=== PATIENT | male | born 1980 | race Caucasian/White ===

== ENCOUNTER 2017-04-01 11:03 | Emergency (ER) | payer MEDICARE, MEDICAID ==
[2017-04-01 12:40] VITALS: BP 114/77
--- NOTE | 2017-04-01 15:21 | UC ---
[place]on [place] Jason, scribed for [facility] on 04/01/17 at 1519 . Ear Complaint HPI - HPI Summary HPI Summary: In Room: This patient is a 37 year old M presenting to [facility] with a chief complaint of nonproductive cough and left ear pain that started 1 week ago. The patient rates the pain 0/10 in severity. Symptoms aggravated by nothing. Symptoms alleviated by nothing. MD note: visit history noncontributory to present complaint. He is on multiple medications including opioid prophylaxis. Hx of depression. Nurses note: c/o of coughing for the past week. Also c/o of sinus congestion and L ear pain for the past 2-3 days. Denies fever or sore throat. - History of Current Complaint Chief Complaint: UCRespiratory Stated Complaint: COUGH Time Seen by Provider: 04/01/17 12:59 Hx Obtained From: Patient Onset/Duration: Gradual Onset, Lasting Weeks - since 1 week ago, Still Present Pain Intensity: 0 Pain Scale Used: 0-10 Numeric Aggravating Factors: Nothing Alleviating Factors: Nothing - Allergies/Home Medications Allergies/Adverse Reactions: Allergies Allergy/AdvReac Type Severity Reaction Status Date / Time No Known Allergies Allergy Verified 04/01/17 12:40 Home Medications: Home Medications Escitalopram Oxalate [Lexapro 10 mg] 10 mg PO DAILY 04/01/17 [History Confirmed 04/01/17] PMH/Surg Hx/FS Hx/Imm Hx Previously Healthy: Yes Endocrine History: Other Other Endocrine History: negative DM Psychological History: Depression - Surgical History Surgical History: Yes Surgery Procedure, Year, and Place: nasal surgery - Family History Known Family History: Positive: Hypertension Negative: Blood Disorder - Social History Occupation: Disabled Alcohol Use: Rare Substance Use Type: Marijuana Substance Use Comment - Amount & Last Used: uses medical marijuana for chronic pain Smoking Status (MU): Current Every Day Smoker Amount Used/How Often: currently vapes Have You Smoked in the Last Year: Yes Review of Systems All Other Systems Reviewed And Are Negative: Yes - Comments Additional Review of Systems Comments: A 12 point review of systems was completed and significantly positive for: nonproductive cough and left ear pain. The remainder of the review was negative except as stated above in the HPI. Physical Exam Triage Information Reviewed: Yes Vital Signs: Initial Vital Signs Temp 99.2 F 04/01/17 12:24 Pulse 145 12/14/17 12:24 Resp 16 04/01/17 12:24 BP 114/77 04/01/17 12:24 Pulse Ox 97 04/01/17 12:24 - Additional Comments General: The patient is well-nourished in no acute distress and in no acute pain. Skin: The skin is warm and dry and skin color reflects adequate perfusion. HEENT: The head is normocephalic and atraumatic. The pupils are equal and reactive. The conjunctivae are clear and without drainage.~Nares are patent and without drainage. Mouth reveals moist mucous membranes and the throat is without erythema and exudate. The external ears are intact. The tympanic membranes are intact. Neck is supple with full range of motion and non-tender. There are no carotid bruits. There is no neck vein distension. Fluid behind left ear drum and is mildly erythematous Respiratory: Chest is non-tender. Lungs are clear to auscultation and breath sounds are symmetrical and equal. Cardiovascular: Heart is regular rate and rhythm.~There is no murmur or rub auscultated. There is no peripheral edema and pulses are symmetrical and equal. Abdomen: The abdomen is soft and non-tender. There are normal bowel sounds heard in all four quadrants and there is no organomegaly palpated. Musculoskeletal: There is no back pain noted.~Extremities are non-tender with full range of motion. There is good capillary refill.~There is no peripheral edema or calf tenderness elicited. Neurological: Patient is alert and oriented to person, place and time.~The patient has symmetrical motor strength in all four extremities.~Cranial nerves are grossly intact. Deep tendon reflexes are symmetrical and equal in all four extremities. Psychiatric: The patient has an appropriate affect and does not exhibit any anxiety or depression Ear Complaint Course/Dx - Course Course Of Treatment: The patient is a 37 year old with a 1 week history of cough and left ear pain. The physical exam shows lungs to be clear and left TM mildly red with fluid behind it. I discussed the diagnosis of left serous otitis with the patient and the patient using amoxicillin for 10 days. The patient was agreeable with this plan. - Differential Dx/Diagnosis Differential Diagnosis/HQI/PQRI: Other - URI, serous otitis, otitis media Provider Diagnoses: left serous otitis Discharge - Discharge Plan Condition: Stable Disposition: HOME Prescriptions: Amoxicillin PO (*) [Amoxicillin 875 MG (*)] 875 mg PO BID #20 tab MDD 2 Patient Education Materials: Serous Otitis Media (ED) Referrals: Cristino Simeon MD [Primary Care Provider] - Additional Instructions: Thank you for helping us improve patient care by filling out the My Point Survey. WE DISCUSSED: 1. You have an infected left eardrum. 2. Start amoxicillin for 10 days. 3. See instructions below. 4. Re check at any time for increased pain or temperature. PLEASE SEEK CARE AT THE EMERGENCY DEPARTMENT IF SYMPTOMS WORSEN OR IF NEW SYMPTOMS DEVELOP. FOLLOW UP WITH YOUR PRIMARY CARE PHYSICIAN. The documentation as recorded by the Antwon pyle Jason accurately reflects the service I personally performed and the decisions made by , Brannon Ardon MD.
== END 2017-04-01 13:30 | disposition home or self-care (01) ==
LOC: UCEAST 11:03
DX: H65.92 Unspecified nonsuppurative otitis media, left ear (principal)
CPT/HCPCS: 99212; G0463

== ENCOUNTER 2017-07-02 19:03 | Emergency (ER) | payer OTHER, MEDICAID ==
[2017-07-02 19:25] VITALS: BP 137/88
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
--- NOTE | 2017-07-02 20:55 | RAD ---
Indication: Mid thoracic spine pain RIGHT side. Comparison: June 01, 2008 PA and lateral chest views. Technique: Standing AP and lateral views centered at the thoracic lumbar junction. Report: Radiographs centered at the thoracic lumbar junction demonstrate normal alignment of the visualized thoracic and lumbar spine. No fracture evident. Multilevel very mild vertebral and plate osteophytosis and disc space narrowing at the mid to distal thoracic spine without significant change. Unremarkable paraspinal soft tissue contours. IMPRESSION: No traumatic injury of the visualized thoracic or lumbar spine evident.
== END 2017-07-02 21:50 | disposition home or self-care (01) ==
LOC: UCEAST 19:03
DX: S13.4XXA Sprain of ligaments of cervical spine, initial encounter (principal); S33.5XXA Sprain of ligaments of lumbar spine, initial encounter; V43.63XA Car passenger injured in collision with pick-up truck in traffic accident, initial encounter; Y93.89 Activity, other specified; Y92.410 Unspecified street and highway as the place of occurrence of the external cause; F41.9 Anxiety disorder, unspecified; F32.9 Major depressive disorder, single episode, unspecified; Z87.891 Personal history of nicotine dependence
CPT/HCPCS: 72020; 72050; 72080; 99213; G0463

== ENCOUNTER 2018-12-27 12:56 | Emergency (ER) | payer MEDICARE, MEDICAID ==
--- NOTE | 2018-12-27 13:19 | UC ---
Respiratory Complaint HPI - HPI Summary HPI Summary: 38 yo male presents with 2 complaints: 1) For the last week he has had a dry cough, sinus pain/pressure/congestion, b/ l ears popping and intermittent pressure. He has been taking mucinex OTC with mild relief at first, but no longer helping. He smokes daily. Today noticed a little bit a of sore throat. Denies fever, SOB, chest pain, abdominal pain, n/v. 2) About a month ago he was around another individual who was diagnosed with scabies. Pt began to itch and he divided a scabies cream treatment between him and his girlfriend. His girlfriend's itching resolved, but pt's never fully went away and has persisted. Itching is worse at night and is in hands and feet/ toes. - History of Current Complaint Stated Complaint: COUGH NAUSEA Time Seen by Provider: 12/27/18 13:18 Hx Obtained From: Patient Onset/Duration: Gradual Onset Timing: Constant Severity Initially: Mild Severity Currently: Moderate Pain Intensity: 6 Pain Scale Used: 0-10 Numeric - Allergies/Home Medications Allergies/Adverse Reactions: Allergies Allergy/AdvReac Type Severity Reaction Status Date / Time No Known Allergies Allergy Verified 07/02/17 19:25 PMH/Surg Hx/FS Hx/Imm Hx Psychological History: Anxiety, Depression - Surgical History Surgical History: Yes Surgery Procedure, Year, and Place: nasal surgery - Family History Known Family History: Positive: Hypertension Negative: Blood Disorder - Social History Lives: With Family Alcohol Use: None Substance Use Type: Marijuana Substance Use Comment - Amount & Last Used: uses medical marijuana for chronic pain Smoking Status (MU): Former Smoker Amount Used/How Often: currently vapes Have You Smoked in the Last Year: Yes Review of Systems All Other Systems Reviewed And Are Negative: No Constitutional: Positive: Negative Skin: Positive: Rash Eyes: Positive: Negative ENT: Positive: Ear Ache, Nasal Discharge, Sinus Congestion, Sinus Pain/ Tenderness Respiratory: Positive: Cough Cardiovascular: Positive: Negative Gastrointestinal: Positive: Negative Neurological: Positive: Negative Psychological: Positive: Negative Physical Exam - Summary Physical Exam Summary: GENERAL: NAD. WDWN. No pain distress. SKIN: Web spacing of fingers and toes with scattered excoriations. No linear burrows appreciated. No open wounds, streaking, or tenderness. HEENT: Head: AT/NC Eyes: EOM intact. Conjunctiva clear without inflammation or discharge. Ears: Hearing grossly normal. TMs intact, no bulging, erythema, or edema. Nose: Nasal mucosa mildly swollen and erythematous without discharge. TTP maxillary and frontal sinus. Positive post nasal drip Throat: Posterior oropharynx without exudates, erythema, or tonsillar enlargement. Uvula midline. NECK: Supple. Nontender. No lymphadenopathy. CHEST: CTAB. No r/r/w. No accessory muscle use. Breathing comfortably and in no distress. CV: RRR. Without m/r/g. Pulses intact. Cap refill <2seconds NEURO: Alert. PSYCH: Age appropriate behavior. Triage Information Reviewed: Yes Vital Signs: Vital Signs: Temp Pulse Resp BP Pulse Ox 97.9 F 113 20 134/94 95 12/27/18 13:19 12/27/18 13:19 12/27/18 13:19 12/27/18 13:12/27/18 13:19 Vital Signs Reviewed: Yes Respiratory Course/Dx - Course Course Of Treatment: Sinusitis. Scabies - Differential Dx/Diagnosis Provider Diagnosis: Sinusitis, Scabies Discharge ED - Sign-Out/Discharge Documenting (check all that apply): Patient Departure All imaging exams completed and their final reports reviewed: No Studies - Discharge Plan Condition: Stable Disposition: HOME Prescriptions: Azithromycin TAB* [Zithromax TAB (Z-DAISY) 250 mg #6 tabs] 2 tab PO .TODAY, THEN 1 DAILY #1 daisy Permethrin 5% CREAM* 1 applic TOPICAL SEE INSTRUCTIONS #30 gm Patient Education Materials: Sinusitis (ED), Scabies (ED) Referrals: Cristino Simeon MD [Primary Care Provider] - Additional Instructions: If you develop a fever, shortness of breath, chest pain, new or worsening symptoms - please call your PCP or go to the ED immediately. Your blood pressure was high at todays visit. Please see your primary provider within 4 weeks for recheck and re-evaluation. - Billing Disposition and Condition Condition: STABLE Disposition: Home
[2018-12-27 13:26] VITALS: BP 134/94
== END 2018-12-27 13:39 | disposition home or self-care (01) ==
LOC: UCEAST 12:56
DX: J32.9 Chronic sinusitis, unspecified (principal); B86 Scabies; F41.9 Anxiety disorder, unspecified; F32.9 Major depressive disorder, single episode, unspecified; Z87.891 Personal history of nicotine dependence
CPT/HCPCS: 99212; G0463

== ENCOUNTER 2019-06-14 09:56 | Emergency (ER) | payer MEDICARE, MEDICAID ==
--- OUTSIDE RECORDS SUMMARY | 2019-06-14 11:39 | XMS REPORT | Continuity of Care Document ---
:1980 External Reference #:[id number] Author Name Benjamin Yang, OD Address [address] [place] [address] Care Team Providers Name Role Phone Cristino Simeon JR, MD - Internal Care Team Information Distribution Accounting Clerk [phone] Medicine Problems Description No Information Available Social History Type Date Description Comments Sex Unknown ETOH Use Never used alcohol Tobacco Use Start: Unknown Light tobacco smoker (10 or fewer cigarettes/day) Smoking Status Reviewed: 05/29/19 Light tobacco smoker (10 or fewer cigarettes/day) Allergies, Adverse Reactions, Alerts Active Allergies Reaction Severity Comments Date Seasonal 06/08/2016 Medications Active Medications SIG Qnty Indications Ordering Provider Date Escitalopram Oxalate Unknown 10mg Tablets Hydroxyzine HCL Take 1 Tablet By Unknown 50mg Tablets Mouth In The Evening as Needed Ibuprofen Take 1 Tablet By Unknown 600mg Tablets Mouth 3 Times A Day as Needed Cyclobenzaprine HCL Take 1 Tablet By Unknown 10mg Mouth Up To 3 Tablets Times A Day Valacyclovir HCL She HACKETT, 500mg Angelito Tablets Medical Marijuana Unknown Immunizations Description No Information Available Vital Signs Date Vital Result Comment 05/29/2019 8:58am Intraocular Pressure Right Eye 15 mmHg Intraocular Pressure Left Eye 15 mmHg 10/26/2017 3:21pm Intraocular Pressure Right Eye 16 mmHg Intraocular Pressure Left Eye 16 mmHg Results Description No Information Available Procedures Date Code Description Status 05/29/2019 42656 Refraction Completed 05/29/2019 43998 Eye Exam Est Intermediate Completed Medical Devices Description No Information Available Encounters Description No Information Available Assessments Date Code Description Provider 05/29/2019 H52.13 Myopia, bilateral Benjamin Yang, OD 05/29/2019 H10.45 Other chronic allergic conjunctivitis Benjamin Yang, OD Plan of Treatment 05/29/2019 - Benjamin Yang, ODH52.13 Myopia, [id number] Other chronic allergic conjunctivitisFollow up:yearly full, sooner PRN Functional Status Description No Information Available Mental Status Description No Information Available Referrals Description No Information Available
[2019-06-14 11:56] VITALS: BP 133/94
--- NOTE | 2019-06-14 12:13 | UC ---
Ear Complaint HPI - HPI Summary HPI Summary: 39-year-old male presenting with bilateral earache intermittently 2-3 weeks. Patient states it initially started as a cold with nasal congestion that has mostly resolved. States ears feel full with pressure. Denies decreased hearing. Denies drainage from the ears. Denies tinnitus. Denies fever and chills. Taking [id number] decongestants with some relief. - History of Current Complaint Chief Complaint: UCEar Stated Complaint: EAR PAIN Hx Obtained From: Patient Pain Intensity: 5 Pain Scale Used: 0-10 Numeric - Allergies/Home Medications Allergies/Adverse Reactions: Allergies Allergy/AdvReac Type Severity Reaction Status Date / Time No Known Allergies Allergy Verified 06/14/19 11:51 Home Medications: Home Medications ValACYclovir (*) [Valtrex 500 mg (NF)] 1 tab PO DAILY 12/22/13 [History Confirmed 06/14/19] Escitalopram Oxalate [Lexapro 10 mg] 10 mg PO DAILY 04/01/17 [History Confirmed 06/14/19] Cyclobenzaprine HCl 1 tab PO QPM PRN 06/14/19 [History Confirmed 06/14/19] Ibuprofen 1,200 mg PO ONCE PRN 06/14/19 [History Confirmed 06/14/19] Phenylephrine/Dm/Acetaminop/GG [Mucinex Fast-Max Cold-Flu Cap] 1 tab PO ONCE PRN 06/14/19 [History Confirmed 06/14/19] PMH/Surg Hx/FS Hx/Imm Hx Previously Healthy: Yes - Surgical History Surgical History: Yes Surgery Procedure, Year, and Place: nasal surgery - Family History Known Family History: Positive: Hypertension Negative: Blood Disorder - Social History Alcohol Use: Occasionally Substance Use Type: Heroin, Marijuana Substance Use Comment - Amount & Last Used: uses medical marijuana for chronic pain Smoking Status (MU): Former Smoker Amount Used/How Often: 1/2ppd Have You Smoked in the Last Year: Yes Household Exposure Type: Cigarettes Review of Systems All Other Systems Reviewed And Are Negative: Yes Constitutional: Positive: Negative ENT: Positive: Ear Ache - b/l Respiratory: Positive: Negative Cardiovascular: Positive: Negative Gastrointestinal: Positive: Negative Musculoskeletal: Positive: Negative Neurological/Mental Status: Positive: Negative Physical Exam - Summary Physical Exam Summary: Vital Signs Reviewed: Yes A+Ox3, no distress Eyes: Conjunctiva Clear ENT: Hearing grossly normal, right TM intact and clear. left TM with small effusion, no bulding or erythema. no nasal congestion, moist, uvula midline, no exudate, no erythema Neck: Positive: Supple Respiratory: Positive: No respiratory distress, No accessory muscle use + CTA throughout no w/r Cardiovascular: tachycardic. nl s1, s2 no m/r Musculoskeletal Exam: BENITES x 4 without difficulty Neurological: Positive: Alert Psychological: Positive: age appropriate behavior Skin: Positive: no rash, no ecchymosis Vital Signs: Initial Vital Signs Temp 99.6 F 06/14/19 11:48 Pulse 123 06/14/19 11:48 Resp 14 06/14/19 11:48 BP 133/94 06/14/19 11:48 Pulse Ox 97 06/14/19 11:48 Ear Complaint Course/Dx - Course Course Of Treatment: Discussed serous otitis media of left ear with patient without signs of infection.. Educated on symptomatic treatment and reassured the patient that symptoms should improve with time on their own. Instructed to follow up with PCP if symptoms persist or worsen. Patient voiced understanding and agreed with treatment plan. - Differential Dx/Diagnosis Differential Diagnosis/HQI/PQRI: Otitis Media, URI Provider Diagnosis: Acute serous otitis media of left ear Discharge ED - Sign-Out/Discharge Documenting (check all that apply): Patient Departure All imaging exams completed and their final reports reviewed: No Studies - Discharge Plan Condition: Stable Disposition: HOME Patient Education Materials: Serous Otitis Media (ED) Referrals: Cristino Simeon MD [Primary Care Provider] - If Needed Additional Instructions: You do not show any signs of an ear infection today. You may continue with over the counter decongestant and nasal spray. Symptoms should resolve on their own with time. Follow up with your primary care provider with any new or worsening symptoms. - Billing Disposition and Condition Condition: STABLE Disposition: Home
== END 2019-06-14 12:34 | disposition home or self-care (01) ==
LOC: UCEAST 09:56
DX: H65.02 Acute serous otitis media, left ear (principal); Z87.891 Personal history of nicotine dependence
CPT/HCPCS: 99211; G0463